=== PATIENT | female | born 1955 | race Caucasian/White ===

== ENCOUNTER 2018-02-22 06:43 | Day surgery (SDC) | payer BC ==
[~2018-02-22 06:43] MED LIST: ALTACE10 MG PO; AMLODIPINE5 MG PO; CALCITRIOL0.25 MC1 PO; CALCIUM + D600 MG PO; CARAFATE1 GM PO; CHOLESTYRAMINE4 G1 PO; CLONAZEP ODT1 MG PO; CYMBALTA60 MG PO; DRONABINOL5 MG PO; FLAX OIL; FLAX SEED OIL1300 MG PO; FOLIC ACID1 MG PO; HUMIRA40 MG/0.8 IM; HYDROCHLOROT12.5 MG PO; IMITREX20 MG/ACT; KRATOM PO; LIDOCAINE51 TOP; METOPROLOL SUCC25 MG PO; MILK THISTL2 PO; NEXIUM40 M1 PO; OS-CAL 500500 M1 PO; PENNSAID 2%; PENNSAID 2% TOP; PREDNISONE5 MG PO; PRESERVISION AREDS PO; RASUVO25 MG/0.5 SC; SUPER B COM2 PO; SYNTHROID100 MCG PO; SYNTHROID112 MCG PO; TURMERIC CURCU500 MG PO; VALTREX1 GM PO; VITAMIN B-125000 MCG SL; VITAMIN D31000 UNI1 PO; WELCHOL625 MG PO; [UNRECOGNIZED DRUG - CODE]
[2018-02-22 08:56] LABS: BARBITURATES NEGATIVE (NEGATIVE); COCAINE NEGATIVE (NEGATIVE); METHADONE NEGATIVE (NEGATIVE); OXCYCODONE NEGATIVE (NEGATIVE); TETRAHYDROCANNABIONOL POSITIVE (NEGATIVE); TRICYLIC ANTIDEPRESSANTS NEGATIVE (NEGATIVE)
[2018-02-22 10:00] VITALS: BP 133/76
== END 2018-02-22 10:08 | disposition home or self-care (01) | DRG 392 ==
LOC: ENDO 06:43 → ORM 07:45 → ENDO 07:45 → ORM 08:00 → ENDO 08:15
PROVIDERS: ATTEND Internal Medicine Gastroenterology
PROC: 0DB98ZX Excision of Duodenum, Via Natural or Artificial Opening Endoscopic, Diagnostic (ICD-10-PCS; principal; 2018-02-22)
PROC: 0DB78ZX Excision of Stomach, Pylorus, Via Natural or Artificial Opening Endoscopic, Diagnostic (ICD-10-PCS; 2018-02-22)
PROC: 0DB58ZX Excision of Esophagus, Via Natural or Artificial Opening Endoscopic, Diagnostic (ICD-10-PCS; 2018-02-22)
DX: K29.70 Gastritis, unspecified, without bleeding (principal); K21.9 Gastro-esophageal reflux disease without esophagitis; K90.0 Celiac disease; R19.7 Diarrhea, unspecified; K22.8 Other specified diseases of esophagus; K57.30 Diverticulosis of large intestine without perforation or abscess without bleeding; K44.9 Diaphragmatic hernia without obstruction or gangrene; I10 Essential (primary) hypertension; E03.9 Hypothyroidism, unspecified; Z86.010 Personal history of colon polyps; Z79.899 Other long term (current) drug therapy